=== PATIENT | female | born 1980 | race Caucasian/White ===

== ENCOUNTER 2018-10-03 17:17 | Emergency (ER) | payer BC, SELFPAY ==
[2018-10-03 17:26] VITALS: BP 137/82; PULSE 72; RESP 16; TEMP 36.6; O2SAT 100
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
--- NOTE | 2018-10-03 18:45 | NUR.NOTE ---
wrapped with elfa and conform wrap.Nursing Note:
== END 2018-10-03 18:20 | disposition home or self-care (01) ==
PROVIDERS: Emergency Provider Emergency Medicine
DX: S81.811A Laceration without foreign body, right lower leg, initial encounter (principal); R10.32 Left lower quadrant pain; V29.3XXA Motorcycle rider (driver) (passenger) injured in unspecified nontraffic accident, initial encounter; Z53.29 Procedure and treatment not carried out because of patient's decision for other reasons
CPT/HCPCS: 12002; 99283